=== PATIENT | female | born 1960 | race Caucasian/White ===

== ENCOUNTER 2019-03-05 20:07 | Emergency (ER) | payer MEDICAID, SELFPAY ==
[2019-03-05 20:09] VITALS: BP 161/87; PULSE 86; RESP 17; TEMP 36.7; O2SAT 94; BMI 31.8
--- NOTE | 2019-03-05 20:17 | ED.VIS.GEN ---
History of Present Illness Chief Complaint: Lower Extremity Injury Informant: Patient Onset: Yesterday Context: Sudden Onset Timing: Continuous Quality: Swelling and pain Location: Left leg Current Severity: Mild Maximum Severity: Moderate Worsened by: Palpation Relieved by: Nothing Associated Symptoms: No associated symptoms Narrative: Patient is a 58-year-old woman with history of metastatic breast cancer who presents because of swelling, pain left leg and specifically calf. She denies chest pain, she denies shortness of breath. Denies fever chills. She denies symptoms of claudication. Prior similar symptoms: No Recent Illness/Hospitalization: No - Past Medical History (1) Metastatic breast cancer Status: Acute Past Medical History - Allergies and Home Meds Allergies/Adverse Reactions: Allergies No Known Allergies Allergy (Verified 03/05/19 20:08) Primary Care Physician: Brigid Curry,Out of [Primary Care Provider] - Prior records reviewed: No - No records available for review Lives: Alone Alcohol: None Drugs: None Review of Systems General: Denies: Chills, Fever, Malaise, Sweats Cardiovascular: Denies: Chest pain, Palpitations Respiratory: Denies: Dyspnea, Cough, Dyspnea on exertion Musculoskeletal: Reports: Swelling, Extremity Pain. Denies: Myalgias, Arthralgias, Neck pain, Back pain Neurological: Denies: Weakness, Parasthesia, Numbness Hematologic: Denies: Easy bruising, Easy bleeding Allergy: Denies: Uticaria, Swelling of the mouth Physical Exam Vital Signs/Narrative: Vital Signs Temp Pulse Resp BP Pulse Ox 03/05/19 20:09 98.1 F 86 17 161/87 H 94 Inital Vital Signs reviewed: Yes General: Well nourished, Well developed, Obese, No Acute Distress Head: Normocephalic, Atraumatic Eyes: Perrl, EOMI ENT: Moist mucous membranes, No rhinorrhea Neck: Supple, Nontender Cardiovascular: Regular rate, Regular rhythm Respiratory: No distress Extremities: No edema, Tenderness - Left calf in the distribution of the deep venous system. There is swelling of the left lower extremity compared to the right.. Negative for: Nontender Skin: No rash, No Trauma. Negative for: Cyanosis, Diaphoresis, Jaundice Neurological: Alert, Oriented x3, Cranial nerves II-XII grossly intact, Normal Strength, Normal Sensation Psychological: Normal affect, Normal Mood Diagnostic/Tx/Re-eval - Medical Decision Making With history of metastatic cancer, unilateral swelling and pain disabused deep venous system will obtain venous duplex study to evaluate for DVT. Other causes may be lymphedema from obstruction. Venous duplex study is negative for DVT ED Disposition - Plan for ED Patient: Disposition: Home or Assisted Living Diagnosis: Pain in posterior left lower extremity, Left leg swelling Instructions: ED Leg Swelling Unilateral Referrals: [facility],Out of [Primary Care Provider] - As Needed
--- NOTE | 2019-03-05 20:19 | US_ITS ---
STUDY: VENOUS DOPPLER ULTRASOUND - LEFT LOWER EXTREMITY REASON FOR EXAM: Female, 58 years old. Swelling of the left leg TECHNIQUE: Ultrasound evaluation of the deep vein system to include summers-scale imaging and compression was performed. Summers-scale imaging and Doppler sonographic evaluation, including duplex spectral analysis and qualitative color flow sonography, was performed. COMPARISON: None. FINDINGS: Common Femoral Vein: Normal compression, spontaneity and augmentation. Normal color Doppler. Common Femoral Vein/Greater Saphenous Junction: Normal compression. Femoral Proximal: Normal compression Femoral Middle: Normal compression, spontaneity and augmentation. Normal color Doppler. Femoral Distal: Normal compression Popliteal Vein: Normal compression, spontaneity and augmentation. Normal color Doppler. Posterior Tibial Vein: Normal compression Peroneal Vein: Normal compression US/Venous Duplex Imag/Limited/Uni IMPRESSION: Left lower extremity venous Doppler exam negative for deep venous thrombosis. Electronically Signed: Anjali Medina MD at 21:03 EDT , Service support ,
[2019-03-05 21:11] VITALS: BP 133/72; PULSE 80; O2SAT 36
== END 2019-03-05 21:14 | disposition home or self-care (01) ==
PROVIDERS: Emergency Provider Emergency Medicine
DX: M79.89 Other specified soft tissue disorders (principal); M79.605 Pain in left leg; Z85.3 Personal history of malignant neoplasm of breast
CPT/HCPCS: 93971; 99282